=== PATIENT | male | born 2005 | race Caucasian/White ===

== ENCOUNTER 2024-06-29 14:10 | Emergency (ER) | payer BC ==
[2024-06-29] MEDS: Azithromycin 250 MG Tab PO ONE (15:06)
[2024-06-29] MEDS: Ibuprofen 600 MG Tab PO ONE (15:06)
[2024-06-29] MEDS ORDERED: Sodium Chloride 0.9% 2.5 ML Syringe FLUSH PRN (15:17)
[2024-06-29] MEDS ORDERED: Sodium Chloride 0.9% 10 ML Syringe FLUSH PRN (15:17)
[2024-06-29] MEDS: Sodium Chloride 0.9% 500 ML IV SCH (15:21)
== END 2024-06-29 16:25 | disposition home or self-care (01) ==
LOC: MW.ED 14:10
DX: S00.33XA Contusion of nose, initial encounter (principal); J02.0 Streptococcal pharyngitis; E86.0 Dehydration; Z90.49 Acquired absence of other specified parts of digestive tract; Z79.899 Other long term (current) drug therapy; Z88.1 Allergy status to other antibiotic agents; Z91.011 Allergy to milk products; Z91.018 Allergy to other foods; Z75.8 Other problems related to medical facilities and other health care
CPT/HCPCS: 70160; 96360; 99283; A9270; J7040